=== PATIENT | female | born 1980 | race Caucasian/White ===

== ENCOUNTER 2023-09-11 10:44 | Outpatient (CLI) | payer BC, SELFPAY ==
--- NOTE | ~2023-09-11 | MR_ITS ---
MRI of the left knee Clinical history: Pain Technique: Coronal proton density and proton density-weighted images, sagittal proton-density and T2 fat-sat images, and axial proton-density fat-saturated images were acquired. Findings: Anterior and posterior cruciate ligaments are intact. Medial collateral ligament and the la teral collateral ligament complex are intact. Popliteus tendon is intact. There is a radial tear at the posterior root of the medial meniscus. No lateral meniscal tear evident . Articular cartilage in the lateral compartment is well preserved. 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 There are patchy, focal areas of high-grade chondral malacia the patellar apex extending to the medial patellar facet. There is patchy mild to moderate chondromalacia the femoral trochlea centrally. Minimal xavier lar spurring present. Extensor mechanism is intact. Small to moderate joint effusion present. No Encarnacion's cyst. Impression: Radial tear at the posterior root of the medial masses. Degenerative change, as detailed above, worst in the medial compartment. Small to moderate joint effusion. Reviewed, dictated and finalized at location . [employer] Impression: Radial tear at the posterior root of the medial masses. Degenerative change, as detailed above, worst in the medial compartment. Small to moderate joint effusion.
== END 2023-09-11 10:45 ==
PROVIDERS: PCP Nurse Practitioner Family; Visit Provider Nurse Practitioner Family
DX: M25.362 Other instability, left knee (principal); M17.12 Unilateral primary osteoarthritis, left knee; S83.242A Other tear of medial meniscus, current injury, left knee, initial encounter; M25.462 Effusion, left knee; X58.XXXA Exposure to other specified factors, initial encounter
CPT/HCPCS: 73721